=== PATIENT | male | born 1995 | race African-American/Black ===

== ENCOUNTER 2020-09-19 19:08 | Emergency (ER) | payer OTHER ==
[~2020-09-19] VITALS: Ht 170.2 cm; Wt 72.7 kg
[2020-09-19 19:13] VITALS: BP 126/81
== END 2020-09-19 19:30 | disposition left against medical advice (07) ==
LOC: EMS 19:09
DX: Z11.59 Encounter for screening for other viral diseases (principal); Z53.21 Procedure and treatment not carried out due to patient leaving prior to being seen by health care provider